=== PATIENT | male | born 1975 | race Caucasian/White ===

== ENCOUNTER 2017-04-03 18:25 | Inpatient (IN) | payer MEDICAID ==
[~2017-04-03] VITALS: Ht 167.6 cm; Wt 99.8 kg
[2017-04-03] MEDS ORDERED: METF500T4 PO (18:33)
[2017-04-03 18:42] LABS: GLUCOSE,POINT OF CARE 189 MG/DL (70-110)
[2017-04-03 21:25] LABS: BASOPHILS # (AUTO) 0.04 K/uL (0.00-0.20); BASOPHILS % (AUTO) 0.5 % (0.0-2.0); EOSINOPHILS # (AUTO) 0.23 K/uL (0.00-0.70); EOSINOPHILS % (AUTO) 2.95 % (1.0-6.0); HEMATOCRIT 46.3 % (41-53); LYMPHOCYTES # (AUTO) 1.9 K/uL (1.0-4.8); LYMPHOCYTES % (AUTO) 24.7 % (22.0-44.0); MEAN CORPUSCULAR HGB CONC 32.4 G/dL (31.0-37.0); MEAN CORPUSCULAR VOLUME 92 fL (80-100); MONOCYTES # (AUTO) 0.6 K/uL (0.1-1.0); MONOCYTES % (AUTO) 7.1 % (2.0-9.0); NEUTROPHILS # (AUTO) 5.1 K/uL (1.8-7.7); NEUTROPHILS % (AUTO) 64.8 % (40.0-70.0); PLATELET COUNT (AUTO) 183 K/uL (150-450); RED BLOOD CELL COUNT(AUTO) 5.01 MIL/uL (4.50-5.90); RED CELL DISTRIBUTION WIDTH 14.7 % (11.5-14.5); WHITE BLOOD COUNT (AUTO) 7.9 K/uL (4.5-11.0)
[2017-04-03 21:34] LABS: ANION GAP 11 mmol/L (8-16); CALCIUM, TOTAL 9.2 mg/dL (8.8-10.5); CARBON DIOXIDE 24 mmol/L (22-29); CHLORIDE 105 mmol/L (98-107); CREATININE 0.79 mg/dL (0.60-1.30); GLOMERULAR FILTR. RATE CALC > 60 mL/min (>60); SODIUM SERUM 140 mmol/L (136-145); UREA NITROGEN, BLOOD 17 mg/dL (7-18)
[2017-04-03 21:40] LABS: ALANINE AMINOTRANSFERASE 42 U/L (12-78); ALBUMIN 3.6 g/dL (3.4-5.0); ASPARTATE AMINOTRANSFERASE 23 U/L (15-37); B-TYPE NATRIURETIC PEPTIDE < 5 pg/mL (0-100); BILIRUBIN,TOTAL 0.4 mg/dL (0.1-1.0); TOTAL PROTEIN, SERUM 7.8 g/dL (6.4-8.2)
[2017-04-03] MEDS ORDERED: IOVERSOL 350 MG/ML 100 ML VIAL ONE (22:28)
[2017-04-03] MEDS ORDERED: ONDANSETRON HCL 4 MG/2 ML VIAL IVP PRN ×2 (23:30→23:45)
[2017-04-03] MEDS ORDERED: 0.9% SODIUM CHLORIDE 10 ML SYRINGE IVP PRN ×2 (23:30→23:45)
[2017-04-03] MEDS ORDERED: ACETAMINOPHEN 325 MG TABLET PO PRN ×2 (23:30→23:45)
[2017-04-03] MEDS ORDERED: DEXTROSE 50%-WATER 25 GM/50 ML SYRINGE IVP PRN (23:45)
[2017-04-03] MEDS ORDERED: MAGNESIUM HYDROXIDE SUSPENSION 30 ML UDCUP PO PRN (23:45)
[2017-04-04] VITALS (7 sets, daily range): BP systolic 114–140; BP diastolic 60–90
[2017-04-04] MEDS ORDERED: AZITHROMYCIN 500 MG/NS 250 ML IV ONE
[2017-04-04] MEDS ORDERED: CefTRIAXone 1 GM/DEXTROSE 50 ML IV ONE
[2017-04-04 00:06] LABS: LACTIC ACID 0.6 mmol/L (0.4-2.0)
[2017-04-04 00:26] LABS: PROCALCITONIN (PCT) 0.05 ng/mL (<0.50)
[2017-04-04 06:45] LABS: BASOPHILS % (AUTO) 0.4 % (0.0-2.0); EOSINOPHILS % (AUTO) 2.4 % (1.0-6.0); HEMATOCRIT 41.7 % (41-53); HEMOGLOBIN 14.2 g/dL (13.5-17.5); LYMPHOCYTES # (AUTO) 1.7 K/uL (1.0-4.8); LYMPHOCYTES % (AUTO) 15.7 % (22.0-44.0); MEAN CORPUSCULAR HEMOGLOBIN 31.1 pg (26.0-34.0); MEAN CORPUSCULAR VOLUME 92 fL (80-100); MONOCYTES # (AUTO) 0.6 K/uL (0.1-1.0); MONOCYTES % (AUTO) 5.6 % (2.0-9.0); NEUTROPHILS # (AUTO) 8.2 K/uL (1.8-7.7); NEUTROPHILS % (AUTO) 75.9 % (40.0-70.0); PLATELET COUNT (AUTO) 181 K/uL (150-450); RED BLOOD CELL COUNT(AUTO) 4.55 MIL/uL (4.50-5.90); RED CELL DISTRIBUTION WIDTH 14.5 % (11.5-14.5); WHITE BLOOD COUNT (AUTO) 10.8 K/uL (4.5-11.0)
[2017-04-04 07:35] LABS: ANION GAP 8 mmol/L (8-16); CALCIUM, TOTAL 8.8 mg/dL (8.8-10.5); CARBON DIOXIDE 28 mmol/L (22-29); CHLORIDE 107 mmol/L (98-107); GLOMERULAR FILTR. RATE CALC > 60 mL/min (>60); POTASSIUM 3.9 mmol/L (3.5-5.1); SODIUM SERUM 143 mmol/L (136-145); UREA NITROGEN, BLOOD 16 mg/dL (7-18)
[2017-04-04] MEDS: PANTOPRAZOLE SODIUM 40 MG/VIAL IVP SCH (08:17)
[2017-04-04] MEDS: DOCUSATE SODIUM 100 MG CAPSULE PO SCH ×2 (08:17→20:59)
[2017-04-04] MEDS: OxyCODONE HCL/ACETAMINOPHEN 5-325 MG TABLET PO PRN ×2 (09:52→20:59)
[2017-04-04] MEDS: INSULIN ASPART 100 UNITS/ML SQ PRN ×3 (11:46→21:06)
[2017-04-04 12:13] LABS: GLUCOSE,POINT OF CARE 134 MG/DL (70-110)
[2017-04-04 22:23] LABS: GLUCOSE,POINT OF CARE 192 MG/DL (70-110)
[2017-04-04 22:23] LABS: GLUCOSE,POINT OF CARE 163 MG/DL (70-110)
[2017-04-04 22:23] LABS: GLUCOSE,POINT OF CARE 157 MG/DL (70-110)
[2017-04-04] MEDS ORDERED: SODIUM CHLORIDE 0.9% 500 ML IV ONE (23:25)
[2017-04-04] MEDS: CefTRIAXone 1 GM/DEXTROSE 50 ML IV SCH (23:39)
[2017-04-05] MEDS: AZITHROMYCIN 500 MG/NS 250 ML IV SCH (00:21)
[2017-04-05] MEDS: OxyCODONE HCL/ACETAMINOPHEN 5-325 MG TABLET PO PRN ×2 (00:22→08:09)
[2017-04-05 05:04] VITALS: BP 112/69
[2017-04-05 06:29] LABS: BASOPHILS % (AUTO) 0.2 % (0.0-2.0); EOSINOPHILS % (AUTO) 2.5 % (1.0-6.0); HEMATOCRIT 41.9 % (41-53); HEMOGLOBIN 14.2 g/dL (13.5-17.5); LYMPHOCYTES # (AUTO) 1.6 K/uL (1.0-4.8); LYMPHOCYTES % (AUTO) 18.2 % (22.0-44.0); MEAN CORPUSCULAR HGB CONC 33.9 G/dL (31.0-37.0); MEAN CORPUSCULAR VOLUME 91 fL (80-100); MONOCYTES # (AUTO) 0.6 K/uL (0.1-1.0); NEUTROPHILS # (AUTO) 6.4 K/uL (1.8-7.7); NEUTROPHILS % (AUTO) 72.1 % (40.0-70.0); PLATELET COUNT (AUTO) 196 K/uL (150-450); RED BLOOD CELL COUNT(AUTO) 4.59 MIL/uL (4.50-5.90); RED CELL DISTRIBUTION WIDTH 14.4 % (11.5-14.5); WHITE BLOOD COUNT (AUTO) 8.9 K/uL (4.5-11.0)
[2017-04-05 06:47] LABS: ALANINE AMINOTRANSFERASE 44 U/L (12-78); ALBUMIN 3.1 g/dL (3.4-5.0); ANION GAP 7 mmol/L (8-16); ASPARTATE AMINOTRANSFERASE 23 U/L (15-37); BILIRUBIN,TOTAL 0.4 mg/dL (0.1-1.0); CALCIUM, TOTAL 8.5 mg/dL (8.8-10.5); CARBON DIOXIDE 29 mmol/L (22-29); CHLORIDE 105 mmol/L (98-107); CREATININE 0.89 mg/dL (0.60-1.30); GLOMERULAR FILTR. RATE CALC > 60 mL/min (>60); POTASSIUM 4.3 mmol/L (3.5-5.1); SODIUM SERUM 141 mmol/L (136-145); UREA NITROGEN, BLOOD 13 mg/dL (7-18)
[2017-04-05 07:51] VITALS: BP 128/75
[2017-04-05] MEDS: DOCUSATE SODIUM 100 MG CAPSULE PO SCH (08:09)
[2017-04-05] MEDS: PANTOPRAZOLE SODIUM 40 MG/VIAL IVP SCH (08:09)
[2017-04-05] MEDS ORDERED: VANCOMYCIN HCL 1 GM/D5% WATER 200 ML IV ONE (11:00)
[2017-04-05 11:08] VITALS: BP 129/81
[2017-04-05] MEDS: INSULIN ASPART 100 UNITS/ML SQ PRN ×2 (11:55→17:51)
[2017-04-05 15:03] VITALS: BP 117/64
[2017-04-05] MEDS: VANCOMYCIN HCL 1.5 GM in DEXTROSE 5%-WATER 250 ML IV SCH (15:48)
[2017-04-05] MEDS: MethylPREDNISolone SOD SUCC 40 MG/ML VIAL IVP SCH (16:05)
[2017-04-05 17:20] LABS: ANTI-DNA DOUBLE STRANDED ABS <1 IU/mL (0-9)
[2017-04-05 20:01] VITALS: BP 127/68
[2017-04-05 23:43] VITALS: BP 135/78
[2017-04-06] MEDS: VANCOMYCIN HCL 1.5 GM in DEXTROSE 5%-WATER 250 ML IV SCH ×3 (00:06→15:31)
[2017-04-06] MEDS: CefTRIAXone 1 GM/DEXTROSE 50 ML IV SCH (00:06)
[2017-04-06] MEDS: DOCUSATE SODIUM 100 MG CAPSULE PO SCH ×3 (00:06→20:35)
[2017-04-06] MEDS: MethylPREDNISolone SOD SUCC 40 MG/ML VIAL IVP SCH ×3 (00:16→15:31)
[2017-04-06] MEDS ORDERED: SODIUM CHLORIDE 0.9% 500 ML IV ONE ×2 (00:17→23:57)
[2017-04-06] MEDS: AZITHROMYCIN 500 MG/NS 250 ML IV SCH (00:26)
[2017-04-06 06:36] LABS: EOSINOPHILS % (AUTO) 0 % (1.0-6.0); HEMATOCRIT 42.9 % (41-53); HEMOGLOBIN 14.6 g/dL (13.5-17.5); LYMPHOCYTES # (AUTO) 0.7 K/uL (1.0-4.8); LYMPHOCYTES % (AUTO) 5.5 % (22.0-44.0); MEAN CORPUSCULAR HEMOGLOBIN 30.9 pg (26.0-34.0); MEAN CORPUSCULAR VOLUME 91 fL (80-100); MONOCYTES # (AUTO) 0.1 K/uL (0.1-1.0); MONOCYTES % (AUTO) 0.6 % (2.0-9.0); NEUTROPHILS # (AUTO) 11.4 K/uL (1.8-7.7); PLATELET COUNT (AUTO) 213 K/uL (150-450); RED BLOOD CELL COUNT(AUTO) 4.71 MIL/uL (4.50-5.90); RED CELL DISTRIBUTION WIDTH 14.2 % (11.5-14.5); WHITE BLOOD COUNT (AUTO) 12.1 K/uL (4.5-11.0)
[2017-04-06 07:13] LABS: ALANINE AMINOTRANSFERASE 39 U/L (12-78); ALBUMIN 3.2 g/dL (3.4-5.0); ANION GAP 9 mmol/L (8-16); ASPARTATE AMINOTRANSFERASE 17 U/L (15-37); BILIRUBIN,TOTAL 0.4 mg/dL (0.1-1.0); CARBON DIOXIDE 27 mmol/L (22-29); CHLORIDE 104 mmol/L (98-107); CREATININE 0.58 mg/dL (0.60-1.30); GLOMERULAR FILTR. RATE CALC > 60 mL/min (>60); POTASSIUM 4.1 mmol/L (3.5-5.1); SODIUM SERUM 140 mmol/L (136-145); TOTAL PROTEIN, SERUM 7.5 g/dL (6.4-8.2); UREA NITROGEN, BLOOD 10 mg/dL (7-18)
[2017-04-06 07:42] VITALS: BP 125/72
[2017-04-06] MEDS: PANTOPRAZOLE SODIUM 40 MG/VIAL IVP SCH (08:13)
[2017-04-06 08:16] LABS: NEUTROPHILS % (AUTO) 93.9 % (40.0-70.0)
[2017-04-06] MEDS: INSULIN ASPART 100 UNITS/ML SQ PRN ×3 (11:43→22:36)
[2017-04-06 11:54] VITALS: BP 121/66
[2017-04-06 12:53] LABS: ANA,IFA (TITER & PATTERN) Negative
[2017-04-06 13:42] LABS: GLUCOSE,POINT OF CARE 123 MG/DL (70-110)
[2017-04-06 15:20] VITALS: BP 127/65
[2017-04-06 19:35] VITALS: BP 109/57
[2017-04-06 20:02] LABS: GLUCOSE,POINT OF CARE 216 MG/DL (70-110)
[2017-04-06 20:02] LABS: GLUCOSE,POINT OF CARE 186 MG/DL (70-110)
[2017-04-06 20:02] LABS: GLUCOSE,POINT OF CARE 196 MG/DL (70-110)
[2017-04-06 23:28] VITALS: BP 121/70
[2017-04-07] MEDS: MethylPREDNISolone SOD SUCC 40 MG/ML VIAL IVP SCH ×4 (00:20→23:29)
[2017-04-07] MEDS: CefTRIAXone 1 GM/DEXTROSE 50 ML IV SCH ×2 (00:20→23:29)
[2017-04-07] MEDS: VANCOMYCIN HCL 1.5 GM in DEXTROSE 5%-WATER 250 ML IV SCH ×3 (01:20→18:30)
[2017-04-07] MEDS: AZITHROMYCIN 500 MG/NS 250 ML IV SCH (02:30)
[2017-04-07 04:49] VITALS: BP 119/71
[2017-04-07 05:58] LABS: EOSINOPHILS % (AUTO) 0 % (1.0-6.0); HEMATOCRIT 40.7 % (41-53); HEMOGLOBIN 13.8 g/dL (13.5-17.5); LYMPHOCYTES # (AUTO) 0.8 K/uL (1.0-4.8); LYMPHOCYTES % (AUTO) 4.1 % (22.0-44.0); MEAN CORPUSCULAR HEMOGLOBIN 30.7 pg (26.0-34.0); MEAN CORPUSCULAR VOLUME 90 fL (80-100); MONOCYTES # (AUTO) 0.3 K/uL (0.1-1.0); MONOCYTES % (AUTO) 1.8 % (2.0-9.0); NEUTROPHILS # (AUTO) 17.6 K/uL (1.8-7.7); PLATELET COUNT (AUTO) 238 K/uL (150-450); RED CELL DISTRIBUTION WIDTH 13.8 % (11.5-14.5); WHITE BLOOD COUNT (AUTO) 18.7 K/uL (4.5-11.0)
[2017-04-07 06:28] LABS: ALANINE AMINOTRANSFERASE 34 U/L (12-78); ALBUMIN 3.2 g/dL (3.4-5.0); ANION GAP 8 mmol/L (8-16); ASPARTATE AMINOTRANSFERASE 11 U/L (15-37); BILIRUBIN,TOTAL 0.3 mg/dL (0.1-1.0); CALCIUM, TOTAL 9.1 mg/dL (8.8-10.5); CARBON DIOXIDE 28 mmol/L (22-29); CHLORIDE 103 mmol/L (98-107); CREATININE 0.76 mg/dL (0.60-1.30); GLOMERULAR FILTR. RATE CALC > 60 mL/min (>60); POTASSIUM 4.4 mmol/L (3.5-5.1); SODIUM SERUM 139 mmol/L (136-145); TOTAL PROTEIN, SERUM 7.3 g/dL (6.4-8.2); UREA NITROGEN, BLOOD 17 mg/dL (7-18)
[2017-04-07 06:41] LABS: NEUTROPHILS % (AUTO) 94.1 % (40.0-70.0)
[2017-04-07 06:57] LABS: GLUCOSE COMMENT 1 Received Meds; GLUCOSE,POINT OF CARE 234 MG/DL (70-110)
[2017-04-07] MEDS: INSULIN ASPART 100 UNITS/ML SQ PRN ×4 (07:21→20:37)
[2017-04-07 08:04] VITALS: BP 129/75
[2017-04-07] MEDS: DOCUSATE SODIUM 100 MG CAPSULE PO SCH ×2 (09:01→20:37)
[2017-04-07] MEDS: PANTOPRAZOLE SODIUM 40 MG/VIAL IVP SCH (09:02)
[2017-04-07 11:38] VITALS: BP 123/68
[2017-04-07 12:27] LABS: GLUCOSE COMMENT 1 Received Meds; GLUCOSE,POINT OF CARE 295 MG/DL (70-110)
[2017-04-07] MEDS ORDERED: VANCOMYCIN HCL 1.5 GM in DEXTROSE 5%-WATER 250 ML IV ONE (14:00)
[2017-04-07 15:31] VITALS: BP 119/68
[2017-04-07 17:58] LABS: GLUCOSE COMMENT 1 Received Meds; GLUCOSE,POINT OF CARE 282 MG/DL (70-110)
[2017-04-07 19:53] VITALS: BP 115/72
[2017-04-07 22:17] LABS: GLUCOSE COMMENT 1 Received Meds; GLUCOSE,POINT OF CARE 343 MG/DL (70-110)
[2017-04-07] MEDS ORDERED: SODIUM CHLORIDE 0.9% 500 ML IV ONE (23:57)
[2017-04-08] MEDS: VANCOMYCIN HCL 1.5 GM in DEXTROSE 5%-WATER 250 ML IV SCH ×2 (00:38→06:00)
[2017-04-08] MEDS: AZITHROMYCIN 500 MG/NS 250 ML IV SCH ×2 (02:02→23:09)
[2017-04-08 04:53] VITALS: BP 124/62
[2017-04-08] MEDS: INSULIN ASPART 100 UNITS/ML SQ PRN ×4 (06:00→21:54)
[2017-04-08 06:24] LABS: EOSINOPHILS % (AUTO) 0 % (1.0-6.0); HEMATOCRIT 42.2 % (41-53); HEMOGLOBIN 14.1 g/dL (13.5-17.5); LYMPHOCYTES # (AUTO) 0.8 K/uL (1.0-4.8); LYMPHOCYTES % (AUTO) 4.4 % (22.0-44.0); MEAN CORPUSCULAR HEMOGLOBIN 30.6 pg (26.0-34.0); MEAN CORPUSCULAR HGB CONC 33.4 G/dL (31.0-37.0); MEAN CORPUSCULAR VOLUME 92 fL (80-100); MONOCYTES # (AUTO) 0.3 K/uL (0.1-1.0); MONOCYTES % (AUTO) 1.7 % (2.0-9.0); NEUTROPHILS # (AUTO) 16.1 K/uL (1.8-7.7); PLATELET COUNT (AUTO) 249 K/uL (150-450); RED BLOOD CELL COUNT(AUTO) 4.61 MIL/uL (4.50-5.90); RED CELL DISTRIBUTION WIDTH 14.4 % (11.5-14.5); WHITE BLOOD COUNT (AUTO) 17.2 K/uL (4.5-11.0)
[2017-04-08 06:50] LABS: NEUTROPHILS % (AUTO) 93.9 % (40.0-70.0)
[2017-04-08 07:07] LABS: ALANINE AMINOTRANSFERASE 31 U/L (12-78); ALBUMIN 3.1 g/dL (3.4-5.0); ANION GAP 7 mmol/L (8-16); ASPARTATE AMINOTRANSFERASE 9 U/L (15-37); BILIRUBIN,TOTAL 0.4 mg/dL (0.1-1.0); CALCIUM, TOTAL 9.1 mg/dL (8.8-10.5); CARBON DIOXIDE 29 mmol/L (22-29); CHLORIDE 102 mmol/L (98-107); CREATININE 0.79 mg/dL (0.60-1.30); GLOMERULAR FILTR. RATE CALC > 60 mL/min (>60); POTASSIUM 4.2 mmol/L (3.5-5.1); SODIUM SERUM 138 mmol/L (136-145); TOTAL PROTEIN, SERUM 7.3 g/dL (6.4-8.2); UREA NITROGEN, BLOOD 19 mg/dL (7-18)
[2017-04-08 07:47] LABS: GLUCOSE COMMENT 1 Received Meds; GLUCOSE,POINT OF CARE 263 MG/DL (70-110)
[2017-04-08 08:06] VITALS: BP 129/79
[2017-04-08] MEDS: DOCUSATE SODIUM 100 MG CAPSULE PO SCH ×2 (08:45→21:00)
[2017-04-08] MEDS: PANTOPRAZOLE SODIUM 40 MG/VIAL IVP SCH (08:45)
[2017-04-08] MEDS: MethylPREDNISolone SOD SUCC 40 MG/ML VIAL IVP SCH ×3 (08:45→23:09)
[2017-04-08 11:47] VITALS: BP 128/74
[2017-04-08 12:42] LABS: GLUCOSE COMMENT 1 Received Meds; GLUCOSE,POINT OF CARE 325 MG/DL (70-110)
[2017-04-08 14:03] LABS: ANTI-PROTEINASE 3 (PR3) <3.5 U/mL (0.0-3.5)
[2017-04-08 15:18] LABS: ATYPICAL P-ANCA AB <1:20 titer (Neg:<1:20); CYTOPLASMIC (C-ANCA) AB, IGG <1:20 titer (Neg:<1:20); PERINUCLEAR (P-ANCA) IGG AB <1:20 titer (Neg:<1:20)
[2017-04-08 15:47] VITALS: BP 124/63
[2017-04-08] MEDS ORDERED: VANCOMYCIN HCL 1.5 GM in DEXTROSE 5%-WATER 250 ML IV SCH (16:00)
[2017-04-08 16:58] LABS: GLUCOSE COMMENT 1 Received Meds; GLUCOSE,POINT OF CARE 187 MG/DL (70-110)
[2017-04-08 16:58] LABS: GLUCOSE,POINT OF CARE 305 MG/DL (70-110)
[2017-04-08] MEDS ORDERED: PNEUMOCOCCAL VACCINE POLYVALENT 0.5 ML VIAL [PPSV23] IM ONE (19:15)
[2017-04-08] MEDS ORDERED: INFLUENZA VIRUS VACCINE QVS 2017-18 (3YR+)/PF 60 MCG/0.5 ML SYRINGE IM ONE (19:15)
[2017-04-08] MEDS ORDERED: GuaiFENesin/D-METHORPHAN [SUGAR-FREE] 200-20MG/10 ML SYRUP UDCUP PO PRN (19:30)
[2017-04-08 19:35] VITALS: BP 127/73
[2017-04-08] MEDS: CefTRIAXone 1 GM/DEXTROSE 50 ML IV SCH (21:57)
[2017-04-08 22:12] LABS: GLUCOSE COMMENT 1 Received Meds; GLUCOSE,POINT OF CARE 386 MG/DL (70-110)
[2017-04-08 23:47] VITALS: BP 113/53
[2017-04-09 03:42] LABS: GLUCOSE COMMENT 1 Received Meds; GLUCOSE,POINT OF CARE 361 MG/DL (70-110)
[2017-04-09 04:59] VITALS: BP 115/63
[2017-04-09] MEDS: INSULIN ASPART 100 UNITS/ML SQ PRN ×4 (05:39→21:25)
[2017-04-09 05:44] LABS: BASOPHILS % (AUTO) 0.1 % (0.0-2.0); EOSINOPHILS % (AUTO) 0 % (1.0-6.0); HEMATOCRIT 43.1 % (41-53); HEMOGLOBIN 14.7 g/dL (13.5-17.5); LYMPHOCYTES % (AUTO) 6.5 % (22.0-44.0); MEAN CORPUSCULAR HGB CONC 34.1 G/dL (31.0-37.0); MEAN CORPUSCULAR VOLUME 91 fL (80-100); MONOCYTES # (AUTO) 0.4 K/uL (0.1-1.0); MONOCYTES % (AUTO) 2.4 % (2.0-9.0); NEUTROPHILS # (AUTO) 13.5 K/uL (1.8-7.7); PLATELET COUNT (AUTO) 254 K/uL (150-450); RED BLOOD CELL COUNT(AUTO) 4.74 MIL/uL (4.50-5.90); RED CELL DISTRIBUTION WIDTH 13.9 % (11.5-14.5); WHITE BLOOD COUNT (AUTO) 14.9 K/uL (4.5-11.0)
[2017-04-09 05:47] LABS: GLUCOSE COMMENT 1 Received Meds; GLUCOSE,POINT OF CARE 351 MG/DL (70-110)
[2017-04-09 05:53] LABS: GLUCOSE COMMENT 1 Received Meds; GLUCOSE,POINT OF CARE 263 MG/DL (70-110)
[2017-04-09 06:00] LABS: ALANINE AMINOTRANSFERASE 33 U/L (12-78); ALBUMIN 3.4 g/dL (3.4-5.0); ANION GAP 6 mmol/L (8-16); ASPARTATE AMINOTRANSFERASE 9 U/L (15-37); BILIRUBIN,TOTAL 0.3 mg/dL (0.1-1.0); CALCIUM, TOTAL 9.2 mg/dL (8.8-10.5); CARBON DIOXIDE 30 mmol/L (22-29); CHLORIDE 102 mmol/L (98-107); CREATININE 0.77 mg/dL (0.60-1.30); GLOMERULAR FILTR. RATE CALC > 60 mL/min (>60); POTASSIUM 4.4 mmol/L (3.5-5.1); SODIUM SERUM 138 mmol/L (136-145); TOTAL PROTEIN, SERUM 7.5 g/dL (6.4-8.2); UREA NITROGEN, BLOOD 22 mg/dL (7-18)
[2017-04-09 07:26] VITALS: BP 115/78
[2017-04-09] MEDS: MethylPREDNISolone SOD SUCC 40 MG/ML VIAL IVP SCH ×3 (08:39→23:40)
[2017-04-09] MEDS: PANTOPRAZOLE SODIUM 40 MG/VIAL IVP SCH (08:39)
[2017-04-09] MEDS: DOCUSATE SODIUM 100 MG CAPSULE PO SCH ×2 (08:39→21:09)
[2017-04-09 11:48] LABS: GLUCOSE COMMENT 1 Received Meds; GLUCOSE,POINT OF CARE 367 MG/DL (70-110)
[2017-04-09 11:58] VITALS: BP 140/90
[2017-04-09 15:36] VITALS: BP 131/75
[2017-04-09 17:23] LABS: GLUCOSE,POINT OF CARE 348 MG/DL (70-110)
[2017-04-09] MEDS: PYRIDOXINE HCL 50 MG TABLET PO SCH (17:57)
[2017-04-09] MEDS: ISONIAZID 300 MG TABLET PO SCH (17:57)
[2017-04-09 19:39] VITALS: BP 125/72
[2017-04-09 19:56] LABS: GLUCOSE,POINT OF CARE 298 MG/DL (70-110)
[2017-04-09 21:37] LABS: GLUCOSE COMMENT 1 Received Meds; GLUCOSE,POINT OF CARE 325 MG/DL (70-110)
[2017-04-09 23:12] VITALS: BP 104/60
[2017-04-09] MEDS: CefTRIAXone 1 GM/DEXTROSE 50 ML IV SCH (23:40)
[2017-04-10] MEDS: AZITHROMYCIN 500 MG/NS 250 ML IV SCH (00:27)
[2017-04-10 05:01] VITALS: BP 113/59
[2017-04-10] MEDS: INSULIN ASPART 100 UNITS/ML SQ PRN ×4 (05:14→20:10)
[2017-04-10 06:12] LABS: BASOPHILS % (AUTO) 0.1 % (0.0-2.0); EOSINOPHILS % (AUTO) 0 % (1.0-6.0); HEMATOCRIT 45.4 % (41-53); HEMOGLOBIN 15.6 g/dL (13.5-17.5); LYMPHOCYTES % (AUTO) 7.5 % (22.0-44.0); MEAN CORPUSCULAR HGB CONC 34.3 G/dL (31.0-37.0); MEAN CORPUSCULAR VOLUME 90 fL (80-100); MONOCYTES # (AUTO) 0.3 K/uL (0.1-1.0); MONOCYTES % (AUTO) 2.4 % (2.0-9.0); NEUTROPHILS # (AUTO) 12.4 K/uL (1.8-7.7); PLATELET COUNT (AUTO) 277 K/uL (150-450); RED BLOOD CELL COUNT(AUTO) 5.02 MIL/uL (4.50-5.90); RED CELL DISTRIBUTION WIDTH 14.2 % (11.5-14.5); WHITE BLOOD COUNT (AUTO) 13.8 K/uL (4.5-11.0)
[2017-04-10 06:17] LABS: GLUCOSE COMMENT 1 Received Meds; GLUCOSE,POINT OF CARE 265 MG/DL (70-110)
[2017-04-10 06:43] LABS: ALANINE AMINOTRANSFERASE 39 U/L (12-78); ALBUMIN 3.3 g/dL (3.4-5.0); ANION GAP 6 mmol/L (8-16); ASPARTATE AMINOTRANSFERASE 14 U/L (15-37); BILIRUBIN,TOTAL 0.3 mg/dL (0.1-1.0); CALCIUM, TOTAL 8.8 mg/dL (8.8-10.5); CARBON DIOXIDE 30 mmol/L (22-29); CHLORIDE 101 mmol/L (98-107); CREATININE 0.82 mg/dL (0.60-1.30); GLOMERULAR FILTR. RATE CALC > 60 mL/min (>60); POTASSIUM 4.4 mmol/L (3.5-5.1); SODIUM SERUM 137 mmol/L (136-145); TOTAL PROTEIN, SERUM 7.6 g/dL (6.4-8.2); UREA NITROGEN, BLOOD 22 mg/dL (7-18)
[2017-04-10 07:58] VITALS: BP 111/70
[2017-04-10] MEDS: PYRIDOXINE HCL 50 MG TABLET PO SCH (08:13)
[2017-04-10] MEDS: DOCUSATE SODIUM 100 MG CAPSULE PO SCH ×2 (08:13→20:05)
[2017-04-10] MEDS: ISONIAZID 300 MG TABLET PO SCH (08:13)
[2017-04-10] MEDS: MethylPREDNISolone SOD SUCC 40 MG/ML VIAL IVP SCH ×2 (08:13→20:04)
[2017-04-10] MEDS: PANTOPRAZOLE SODIUM 40 MG/VIAL IVP SCH (08:13)
[2017-04-10 11:57] VITALS: BP 119/71
[2017-04-10 15:52] VITALS: BP 120/72
[2017-04-10 17:47] LABS: GLUCOSE COMMENT 1 Received Meds; GLUCOSE,POINT OF CARE 292 MG/DL (70-110)
[2017-04-10 18:32] LABS: GLUCOSE COMMENT 1 Received Meds; GLUCOSE,POINT OF CARE 347 MG/DL (70-110)
[2017-04-10 19:37] VITALS: BP 135/77
[2017-04-10 19:45] LABS: ABG A-A DIFF O2 38.6 mmHg (10-20.0); ABG BASE EXCESS 2.9 mmol/L (-2.0-3.0); ABG HCO3 26.3 mmol/L (22.0-26.0); ABG PCO2 45 mmHg (35-45); ABG PH 7.408 (7.35-7.450); TEMPERATURE, FAHRENHEIT, BG 98.6 FAHREN (96.0-98.6)
[2017-04-10 19:46] LABS: ALLEN TEST, BLOOD GAS POS
[2017-04-10] MEDS: INSULIN DETEMIR 100 UNITS/ML SQ SCH (20:09)
[2017-04-10 20:22] LABS: GLUCOSE,POINT OF CARE 403 MG/DL (70-110)
[2017-04-10] MEDS: CefTRIAXone 1 GM/DEXTROSE 50 ML IV SCH (23:32)
[2017-04-10 23:53] VITALS: BP 124/80
[2017-04-11] MEDS: AZITHROMYCIN 500 MG/NS 250 ML IV SCH (00:58)
[2017-04-11 04:40] VITALS: BP 123/74
[2017-04-11] MEDS: INSULIN ASPART 100 UNITS/ML SQ PRN ×4 (05:24→19:57)
[2017-04-11 06:38] LABS: BASOPHILS % (AUTO) 0.1 % (0.0-2.0); EOSINOPHILS % (AUTO) 0 % (1.0-6.0); HEMATOCRIT 44.7 % (41-53); HEMOGLOBIN 15.3 g/dL (13.5-17.5); LYMPHOCYTES # (AUTO) 1.3 K/uL (1.0-4.8); LYMPHOCYTES % (AUTO) 8.2 % (22.0-44.0); MEAN CORPUSCULAR HEMOGLOBIN 31.1 pg (26.0-34.0); MEAN CORPUSCULAR HGB CONC 34.2 G/dL (31.0-37.0); MEAN CORPUSCULAR VOLUME 91 fL (80-100); MONOCYTES # (AUTO) 0.5 K/uL (0.1-1.0); PLATELET COUNT (AUTO) 289 K/uL (150-450); RED BLOOD CELL COUNT(AUTO) 4.91 MIL/uL (4.50-5.90); RED CELL DISTRIBUTION WIDTH 14.4 % (11.5-14.5); WHITE BLOOD COUNT (AUTO) 15.8 K/uL (4.5-11.0)
[2017-04-11 06:52] LABS: ALANINE AMINOTRANSFERASE 42 U/L (12-78); ALBUMIN 3.2 g/dL (3.4-5.0); ANION GAP 8 mmol/L (8-16); ASPARTATE AMINOTRANSFERASE 12 U/L (15-37); BILIRUBIN,TOTAL 0.4 mg/dL (0.1-1.0); CALCIUM, TOTAL 9.1 mg/dL (8.8-10.5); CARBON DIOXIDE 29 mmol/L (22-29); CHLORIDE 101 mmol/L (98-107); CREATININE 0.68 mg/dL (0.60-1.30); GLOMERULAR FILTR. RATE CALC > 60 mL/min (>60); SODIUM SERUM 138 mmol/L (136-145); TOTAL PROTEIN, SERUM 7.4 g/dL (6.4-8.2); UREA NITROGEN, BLOOD 22 mg/dL (7-18)
[2017-04-11 07:00] LABS: NEUTROPHILS % (AUTO) 88.7 % (40.0-70.0)
[2017-04-11 07:22] VITALS: BP 115/73
[2017-04-11 07:52] LABS: GLUCOSE,POINT OF CARE 246 MG/DL (70-110)
[2017-04-11] MEDS: PANTOPRAZOLE SODIUM 40 MG/VIAL IVP SCH (08:06)
[2017-04-11] MEDS: DOCUSATE SODIUM 100 MG CAPSULE PO SCH ×2 (08:08→19:50)
[2017-04-11] MEDS: PYRIDOXINE HCL 50 MG TABLET PO SCH (08:08)
[2017-04-11] MEDS: ISONIAZID 300 MG TABLET PO SCH (08:08)
[2017-04-11] MEDS: MethylPREDNISolone SOD SUCC 40 MG/ML VIAL IVP SCH ×2 (08:10→19:50)
[2017-04-11 11:37] VITALS: BP 127/78
[2017-04-11 11:42] LABS: GLUCOSE COMMENT 1 Received Meds; GLUCOSE,POINT OF CARE 359 MG/DL (70-110)
[2017-04-11 14:07] LABS: ABG A-A DIFF O2 44.1 mmHg (10-20.0); ABG BASE EXCESS 2.1 mmol/L (-2.0-3.0); ABG HCO3 25.7 mmol/L (22.0-26.0); ABG OXYHEMOGLOBIN 87.8 % (94.0-100.0); ABG PCO2 43 mmHg (35-45); ABG PH 7.412 (7.35-7.450); ALLEN TEST, BLOOD GAS Positive; TEMPERATURE, FAHRENHEIT, BG 97.7 FAHREN (96.0-98.6)
[2017-04-11 15:24] VITALS: BP 133/82
[2017-04-11 18:18] LABS: GLUCOSE COMMENT 1 Received Meds; GLUCOSE,POINT OF CARE 282 MG/DL (70-110)
[2017-04-11 19:45] VITALS: BP 119/72
[2017-04-11] MEDS: INSULIN DETEMIR 100 UNITS/ML SQ SCH (19:55)
[2017-04-11 20:52] LABS: GLUCOSE,POINT OF CARE 329 MG/DL (70-110)
[2017-04-12 00:23] VITALS: BP 124/64
[2017-04-12 04:56] VITALS: BP 112/75
[2017-04-12] MEDS: INSULIN ASPART 100 UNITS/ML SQ PRN ×3 (05:53→18:36)
[2017-04-12 07:04] VITALS: BP 137/73
[2017-04-12] MEDS: MethylPREDNISolone SOD SUCC 40 MG/ML VIAL IVP SCH (08:05)
[2017-04-12] MEDS: DOCUSATE SODIUM 100 MG CAPSULE PO SCH (08:05)
[2017-04-12] MEDS: PANTOPRAZOLE SODIUM 40 MG/VIAL IVP SCH (08:05)
[2017-04-12 11:06] VITALS: BP 128/83
[2017-04-12 12:27] LABS: GLUCOSE COMMENT 1 Doctor Notified; GLUCOSE COMMENT 2 Received Meds; GLUCOSE,POINT OF CARE 417 MG/DL (70-110)
[2017-04-12] MEDS ORDERED: INSULIN ASPART 100 UNITS/ML SQ ONE (14:45)
[2017-04-12 15:40] VITALS: BP 120/72
[2017-04-12] MEDS ORDERED: PRED10 PO (17:55)
[2017-04-12] MEDS ORDERED: OMEP20 PO (17:57)
[2017-04-12 18:37] LABS: GLUCOSE COMMENT 1 Received Meds; GLUCOSE,POINT OF CARE 297 MG/DL (70-110)
[2017-04-12 19:52] LABS: GLUCOSE,POINT OF CARE 267 MG/DL (70-110)
[2017-04-17 19:09] LABS: AFB SPECIMEN PROCESSING Concentration
[2017-04-18 13:00] LABS: MTB NUCL.ACID AMPLIF W/O AFBCS Negative (Negative)
[2017-04-25 18:35] LABS: COCCIDIOIDES BY CF(UCDAVIS) Negative; COCCIDIOIDES IMMUNODIF-UCDAVIS Negative; COCCIDIOIDES INTERP.(UCDAVIS) Comment:
[2017-05-08] MEDS ORDERED: LISI-660 PO (08:34)
[2017-05-14] MEDS ORDERED: METF850T2 PO (12:19)
[2017-05-14] MEDS ORDERED: PRED5 PO (12:20)
[2017-05-14] MEDS ORDERED: PRED20 PO (12:20)
[2017-05-14] MEDS ORDERED: PRED10 PO (12:20)
[2017-05-14] MEDS ORDERED: AZIT250T9 PO (12:21)
== END 2017-04-12 19:00 | disposition home or self-care (01) | DRG 137 ==
LOC: EMS 18:31 → 5S 23:32 → 6N 04-06 22:55
PROVIDERS: ADMIT Internal Medicine; ATTEND Internal Medicine
DX: A15.9 Respiratory tuberculosis unspecified (principal); E11.65 Type 2 diabetes mellitus with hyperglycemia; I10 Essential (primary) hypertension; J47.9 Bronchiectasis, uncomplicated; J18.9 Pneumonia, unspecified organism; B95.7 Other staphylococcus as the cause of diseases classified elsewhere; G47.33 Obstructive sleep apnea (adult) (pediatric); R91.1 Solitary pulmonary nodule; E66.9 Obesity, unspecified; Z68.35 Body mass index [BMI] 35.0-35.9, adult; Z87.891 Personal history of nicotine dependence
CPT/HCPCS: 71020; 71275; 82805; 82962; 83036; 83516; 83605; 84145; 84443; 86038; 86225; 86256; 86480; 87015; 87040; 87389; 87556; 90471; 93005; 96365; 96366; 96368; 99285; C9113; J0456; J0696; J1815; J2920; J3370; J7040; J7060